=== PATIENT | female | born 1995 | race Two or more races ===

== ENCOUNTER 2025-05-20 17:25 | Observation (INO) | payer MEDICAID, OTHER ==
--- NOTE | 2025-05-20 19:00 | DVH ---
US OB LIMITED CLINICAL HISTORY: Cramping COMPARISON: None TECHNIQUE: Real-time grayscale, color flow and M-mode imaging of the gravid uterus is performed. FINDINGS: Single living intrauterine gestation. Transverse lie, maternal left. heart rate 178 beats per minute. Placenta is posterior. No definite evidence of abruption or previa at this time. The cervix measures approximately 3 cm in length and appears closed. Rounded, heterogeneous and hypoechoic structure seen within the anterior uterine wall. This measures approximately 4.5 cm in diameter and may represent a fibroid. No other prior studies are available f or comparison. Amniotic fluid is visually adequate. MVP 5.3 cm IMPRESSION: Single living intrauterine gestation as above.
--- NOTE | 2025-05-20 20:55 | DVHDS2 ---
Physician Discharge Progress N Final Diagnosis: IUP at 22w5d. Not in labor Operations or Procedures: Operations or Procedures SUBJECTIVE Yeni Oliveros is a 29 yo with IUP at 22w5d presenting for cramping x 3 days Patient states that she had a subchorionic hematoma at the beginning of her which resolved and then came back. She was placed on pelvic rest and has monthly follow-ups with high wire artist (Dr Vasquez). She was also under the impression she has a low lying placenta. Denies any leaking fluid or vaginal bleeding. States she is feeling baby moving like normal. Denies constipation, changes in vaginal discharge, or dysuria. She feels like she has had constant cramping since 3 days ago. It is mild, but always there. Patient states there is no pattern to it and everything "just feels sore" PNC: with Dr Field and Dr Vasquez Review of Systems: Neuro: No complaints Heart: No complaints Lungs: No complaints GI: Lower abdominal cramping as described above : No complaints Skin: No complaints Extremities: No complaints OBJECTIVE VSS FHR: Doppler: 150s UCs: 3x noted on tracing, 40 seconds in length. Patient did not feel when they occurred. Neuro: A&O x4. No apparent distress. Affect appropriate Heart: Regular rate and rhythm Lungs: Clear bilaterally GI: Gravid. No tenderness Skin: Dry and intact. No rashes or lesions Extremities: Cap refill WNL. ASSESSMENT 29 yo with IUP at 22w5d Not in labor PLAN -PO hydrated patient to space out uterine contractions -Discussed common discomforts of and pharmacologic and nonpharmacologi c ways to alleviate. Recommended patient get maternity band for more abdominal support -Continue with appointments as scheduled. Emir on 06/04. Patient to call Christina tomorrow 05/21 to clarify pelvic rest continuation, as US did not show low lying placenta -Discussed labor precautions and kick counts for 28 weeks gestation. Answered all patient questions and concerns. Patient verbalizes understanding. Other Interventions Other Interventions ORDERING PHYSICIAN: JOHN FIELD DO PROCEDURE(s): OBLTD - OBSTERICAL LIMITED REASON: Cramping ORDER NUMBER(s): [id number], ACCESSION NUMBER(s): [id number] US OB LIMITED CLINICAL HISTORY: Cramping COMPARISON: None TECHNIQUE: Real-time grayscale, color flow and M-mode imaging of the gravid uterus is performed. FINDINGS: Single living intrauterine gestation. Transverse lie, maternal left. heart rate 178 beats per minute. Placenta is posterior. No definite evidence of abruption or previa at this time. The cervix measures approximately 3 cm in length and appears closed. Rounded, heterogeneous and hypoechoic structure seen within the anterior uterine wall. This measures approximately 4.5 cm in diameter and may represent a fibroid. No other prior studies are available for comparison. Amniotic fluid is visually adequate. MVP 5.3 cm IMPRESSION: Single living intrauterine gestation as above. Condition on Discharge: Good Disposition: Home Discharge Instructions: Diet: Regular Activity: See Comment (pelvic rest) Medications: no change. see med list Follow Up Care: Specialist: f/up with Emir on 06/04 as previously scheduled Discharge Statement: "Patient was advised to return to the ER or call 911 if any headaches, dizziness, shortness of breath, chest pain, abdominal pain, bleeding, fevers, or worsening of medical condition. Patient was counseled about treatment plan, medications, possible side effects, patientverbalized understanding. All questions were answered to the best of my ability. This discharge took greater then 30 minutes in planning, reviewing documentation, counseling the patient, and discussing with other team members." Visit Coding OBGYN Date of Service: May 20, 2025 Billing Provider: RICHARD OLIVERA CNM COAL PICKER Common Visit Codes: 86017-WRS/OBS SAME DATE (HIGH) COAL PICKER Procedure Codes: 36793-24- NON-STRESS TEST RICHARD OLIVERA CNM May 20, 2025 20:55
== END 2025-05-20 19:58 | disposition home or self-care (01) ==
LOC: LDRP 17:25
PROVIDERS: ADMIT Obstetrics & Gynecology; ATTEND Obstetrics & Gynecology
DX: O44.42 Low lying placenta NOS or without hemorrhage, second trimester (principal); Z3A.22 22 weeks gestation of pregnancy; Z98.890 Other specified postprocedural states
CPT/HCPCS: 59025; 76815; 81002; 94760; G0378

== ENCOUNTER 2025-09-15 09:44 | Observation (INO) | payer MEDICAID ==
--- NOTE | 2025-09-15 10:51 | DVH ---
PROCEDURE: US BIOPHYSICAL PROFILE 09/15/2025 09:58 AM INDICATION: Nuchal/Debris in fluid COMPARISON: 05/20/2025 TECHNIQUE: Sonogram of gravid uterus utilizing grayscale and color techniques. FINDINGS: Single living intrauterine gestation. Presentation: Cephalic Placenta: Fundal heart rate: 138 bpm APOORVA: 14.7 cm, DVP: 7 cm Maternal cervix: Not visualized Other: The umbilical cord is draped around the neck. Debris noted in the amniotic fluid. Biophysical Profile: breathing score: 2 movement score: 2 tone: 2 Quantitative APOORVA score: 2 Total score: 8/8 IMPRESSION: 1. Single living as above. 2. Biophysical profile score: 8/8. 3. Nuchal cord. 4. Debris in the amniotic fluid- that is of uncertain etiology and clinical significance.
[2025-09-15] MEDS ORDERED: PREN-96 PO (10:56)
--- NOTE | 2025-09-15 12:05 | DVHDS2 ---
Physician Discharge Progress N Final Diagnosis: rom ruled out 39wks Operations or Procedures: Operations or Procedures nst reactive reviwed,nisao Condition on Discharge: Good Disposition: Home SNF Discharge Will this Physician continue t: No Discharge Instructions: Diet: Regular Activity: No Restrictions, As Tolerated Medications: na Follow Up Care: Specialist: 2d for induction Discharge Statement: "Patient was advised to return to the ER or call 911 if any headaches, dizziness, shortness of breath, chest pain, abdominal pain, bleeding, fevers, or worsening of medical condition. Patient was counseled about treatment plan, medications, possible side effects, patientverbalized understanding. All questions were answered to the best of my ability. This discharge took greater then 30 minutes in planning, reviewing documentation, counseling the patient, and discussing with other team members." Visit Coding OBGYN Date of Service: Sep 15, 2025 Billing Provider: JOHN DAMON DO AUTOMATION CONTROL INTEGRATOR Common Visit Codes: [id number] OBS CARE (HIGH) JOHN DAMON DO Sep 15, 2025 12:05
== END 2025-09-15 11:26 | disposition home or self-care (01) ==
LOC: LDRP 09:44 → UNDOADMOB 09:44 → LDRP 09:54
PROVIDERS: ADMIT Obstetrics & Gynecology; ATTEND Obstetrics & Gynecology
DX: O62.9 Abnormality of forces of labor, unspecified (principal); Z3A.39 39 weeks gestation of pregnancy; Z98.890 Other specified postprocedural states
CPT/HCPCS: 59025; 76819; 81002; 84112; 94760; A4649; G0378

== ENCOUNTER 2025-09-17 19:39 | Inpatient (IN) | payer MEDICAID ==
[~2025-09-17] VITALS: Ht 154.9 cm; Wt 61.7 kg
[~2025-09-17 19:39] MED LIST: PREN-96 PO
[2025-09-17] MEDS ORDERED: LIDOCAINE 2%HCL (LOCAL ANESTH.) INJ 20ML MDV IJ PRN (22:45)
[2025-09-17] MEDS ORDERED: BUTORPHANOL TARTRATE 2 MG/1 ML VIAL IV PRN ×2 (22:45)
[2025-09-17 23:43] LABS: Hematocrit 31.3 % (36.0-46.0); Hemoglobin 10.5 g/dL (12.2-16.2); Nucleated Red Blood Cells % 0.1 %
[2025-09-17 23:45] LABS: Mean Corpuscular Hemoglobin 25.6 pg (28.0-32.0); Mean Corpuscular Volume 76.3 fL (80.0-100.0)
[2025-09-17 23:57] LABS: Albumin 4.2 g/dL (3.2-4.8); Anion Gap 12 (5-15); BUN/Creatinine Ratio 12.2 (10.0-20.0); Calcium 9.3 mg/dL (8.7-10.4); Carbon Dioxide 22 mmol/L (20-31); Chloride 102 mmol/L (98-107); Glucose 101 mg/dL (74-106); Total Protein 7.1 g/dL (5.7-8.2)
[2025-09-17 23:58] LABS: Bilirubin, Total 0.4 mg/dL (0.2-1.0)
[2025-09-18 00:03] LABS: Alanine Aminotransferase 9 U/L (7-40); Alkaline Phosphatase 263 U/L (46-116); Blood Urea Nitrogen 6 mg/dL (9-23); Potassium 3.2 mmol/L (3.5-5.1); Sodium 136 mmol/L (136-145)
[2025-09-18] MEDS: LIDOCAINE 2% (LOCAL ANESTH.) PF 5ml SDV ONE (00:12)
[2025-09-18] MEDS: NALOXONE HCL 0.4 MG/ML VIAL ONE (00:13)
--- NOTE | 2025-09-18 00:20 | DVHHP2 ---
OB CC & HPI Date Date of Admission: Sep 17, 2025 Patient Identification: : 3 Para: 2 EDC: Sep 18, 2025 EGA: 39w 6d Chief Complaints: Admission Nurse Assessment Rev: Yes History of Present Complaints 29yo G3, [address] with h/o contractions that started at 9pm. She reports normal movement, no SROM, no VB, THOMAS, vision changes or epigastric pain. Past Medical History Cardiac: No pertinent Hx Pulmonary: No pertinent Hx Central Nervous System: No pertinent Hx GI: No pertinent Hx Hemotology/Oncology: No pertinent Hx Hepatobiliary: No pertinent Hx Psychiatric: No pertinent Hx Musculoskeletal: No pertinent Hx Rheumotologic: No pertinent Hx Infectious Disease: No peritnent Hx ENT: No pertinent Hx Renal/: No pertinent Hx Endocrine: No pertinent Hx Dermatology: No pertinent Hx Past Surgical History: No pertinent Hx OB History OB History Care: Good Care Ultrasounds: Normal mid trimester US Obstetrical Complications: None Medical Complications: None Allergies: Coded Allergies: NO KNOWN ALLERGIES (Unverified , 09/17/25) Home Meds Reported Medications Vit W/ Ferrous Fumara ( One Daily) Daily Tab, 1 TAB PO DAILY, #90 TAB 3 Refills 09/15/25 Current Medications Current Medications Medications (Trade) Dose Ordered Sig/Shazia Route PRN Reason Start Time Stop Time Status Last Admin Lactated Ringer's 1,000 ml @ 125 mls/hr Q8H IV 09/17/25 22:45 Witch [place]by (Tucks) 1 pad PRN PRN TOP PERINEAL AREA DISCOMFORT 09/17/25 22:45 Sodium Lauryl Sulfate (Phisoderm) 240 ml PRN PRN TOP PERINEAL AREA DISCOMFORT 09/17/25 22:45 Benzocaine (Dermoplast) 1 applic PRN PRN TOP PERINEAL AREA DISCOMFORT 09/17/25 22:45 Butorphanol Tartrate (Stadol Injection) 1 mg Q4HPRN PRN IV MODERATE PAIN (4-6 PAIN SCALE) 09/17/25 22:45 Butorphanol Tartrate (Stadol Injection) 2 mg Q4HPRN PRN IV SEVERE PAIN (7-10 PAIN SCALE) 09/17/25 22:45 Misoprostol (Cytotec) 50 mcg Q4HPRN PRN PO CERVICAL RIPENING 09/17/25 22:45 Lidocaine HCl (Xylocaine) 20 ml ONCE PRN IJ PERINEAL AREA DISCOMFORT 09/17/25 22:45 Family & Social History Family/Social History Past Family/Social History: Non- contributory Blood Type: A+ Rubella: not immune RPR/VDRL: Negative GBS Status: Negative HBsAG: Negative Review of Systems Constitutional: No symptom reported Ears, Nose, & Throat: No symptom reported Eyes: No symptom reported Pulmonary/Respiratory: No symptom reported Cardiovascular: No symptom reported Gastrointestinal: No symptom reported Genitourinary: No symptom reported Musculoskeletal: No symptom reported Skin: No symptom reported Psychiatric: No symptom reported Endocrine: No symptom reported Hemotologic/Lymphatic: No symptom reported OB Admission Exam Physical Exam HEENT: TMs Normal, Fontanelles Normal, Nasal Mucosa Normal, Eyes non-injected, Oropharynx Normal, PERRLA, Moist Membranes, EOMI Heart: Rhythm Normal Lungs: Clear Abdomen: Gravid (non-tender) Extremities: Normal Reflexes: Normal Cervical Dilatation: 2cm Effacement: 50% Station: -2 Membranes: Intact Accelerations: Accelerations Present Decelerations: No Decelerations Usp Variability: Average (6-25) Contractions on Admission: < 5 Minutes Apart Frequency of Contractions: 2-3minnutes Duration: 80 Intensity: Moderate OB Plan Plan Admitting Diagnosis: IUP at 36w 6d Early Lbor Previously scheduled for IOL but came in spontaneous contraction Plan: Expectant Management Other Plan: Will Augment if indicated. Informed consent obtained. Risk of pain, bleeding, infection, discussed with the patient and partner Consent for possible blood transfusion obtained. All questions answered. Admit to Place for scheduled IOL Routine L&D admission orders EFM per policy & protocol Misoprostol / Cervidil / Pitocin per protocol if indicated Intrauterine resuscitation PRN Labor analgesia PRN Encourage frequent position change and ambulation to facilitate labor & descent Supportive Care Anticipate Visit Coding OBGYN Date of Service: Sep 17, 2025 Billing Provider: ANGELA GAO CNM COOLER TENDER Common Visit Codes: [id number] INP/OBS CARE (HIGH) COOLER TENDER Procedure Codes: 46279-33- NON-STRESS TEST ANGELA GAO CNM Sep 18, 2025 00:20
[2025-09-18] MEDS: LACTATED RINGER'S 1,000 ML IV ONE (00:42)
[2025-09-18 00:44] LABS: INR 0.91 (0.9-1.15); Partial Thromboplastin Time 25.1 SEC (24.5-34.5); Prothrombin Time 9.7 sec (9.3-11.8)
[2025-09-18 01:04] LABS: Urine Protein, UAD Negative (Negative)
[2025-09-18] MEDS: LACTATED RINGER'S 500 ML IV ONE (01:15)
[2025-09-18] MEDS: fentaNYL CITRATE 100 MCG/2 ML VL IV ONE ×2 (01:21→01:45)
--- NOTE | 2025-09-18 01:32 | EPIDURAL ---
Anesthesia Procedural Note - Epidural Date: Sep 18, 2025 Informed consent obtained?: Yes Medication Administered: Fentanyl 100 mcg 2% Lidocaine Administered: 5 Medication Administered: ePHEDrine 5 mg IV Sterile prept drape: Yes Spinal level of insertion: L2-L3 Test dose of lidocaine & Epine: Negative Infusion started: Yes Start time: 00:52 End time: 01:35 PK PULIDO MD Sep 18, 2025 01:32
[2025-09-18] MEDS ORDERED: SODIUM CHLORIDE 0.9% 500 ML IV PRN (01:45)
[2025-09-18] MEDS: NALOXONE HCL 0.4 MG/ML VIAL IV ONE ×2 (01:45)
[2025-09-18 01:56] LABS: Amphetamine Screen, Urine Neg (NEGATIVE); Barbiturate Scree,Urine Neg (NEGATIVE); Benzodiazephine Screen, Urine Neg (NEGATIVE); Cannabinoid Screen, Urine Neg (NEGATIVE); Cocaine Screen, Urine Neg (NEGATIVE); Opiate Scree,Urine Neg (NEGATIVE); Phencyclidine Screen, Urine Neg (NEGATIVE)
[2025-09-18] MEDS: ROPIVACAINE HCL 100 ML ONE ×2 (02:03→10:18)
[2025-09-18] MEDS: LACTATED RINGER'S 1,000 ML IV SCH (02:06)
[2025-09-18] MEDS: PHISODERM TOP SOLN 240ML BTL TOP PRN (02:22)
[2025-09-18] MEDS: DERMOPLAST 60ML BOTTLE TOP PRN (02:22)
[2025-09-18] MEDS: WITCH HAZEL-GLYCERIN PAD TOP PRN (02:22)
--- NOTE | 2025-09-18 06:41 | DVHPN2 ---
Chief Complaints Patient reports: No new complaints Nursing reports: No new complaints Objective Vitals Vital Signs Date Time Temp Pulse Resp B/P (MAP) Pulse Ox O2 Delivery O2 Flow Rate FiO2 09/18/25 01:21 120/74 Medications Current Medications Medications (Trade) Dose Ordered Sig/Shazia Route PRN Reason Start Time Stop Time Status Last Admin Benzocaine (Dermoplast) 1 applic PRN PRN TOP PERINEAL AREA DISCOMFORT 09/17/25 22:45 09/18/25 02:22 Butorphanol Tartrate (Stadol Injection) 1 mg Q4HPRN PRN IV MODERATE PAIN (4-6 PAIN SCALE) 09/17/25 22:45 Butorphanol Tartrate (Stadol Injection) 2 mg Q4HPRN PRN IV SEVERE PAIN (7-10 PAIN SCALE) 09/17/25 22:45 Fentanyl/ Ropivacaine 200 ml @ 10 mls/hr UD EPI 09/18/25 01:45 09/20/25 01:44 Lactated Ringer's 1,000 ml @ 125 mls/hr Q8H IV 09/17/25 22:45 09/18/25 02:06 Lidocaine HCl (Xylocaine) 20 ml ONCE PRN IJ PERINEAL AREA DISCOMFORT 09/17/25 22:45 Misoprostol (Cytotec) 50 mcg Q4HPRN PRN PO CERVICAL RIPENING 09/17/25 22:45 Sodium Chloride 500 ml @ 500 mls/hr Q1H PRN IV FOR BP LESS THAN 90 09/18/25 01:45 Sodium Lauryl Sulfate (Phisoderm) 240 ml PRN PRN TOP PERINEAL AREA DISCOMFORT 09/17/25 22:45 09/18/25 02:22 Witch Barby (Tucks) 1 pad PRN PRN TOP PERINEAL AREA DISCOMFORT 09/17/25 22:45 09/18/25 02:22 Others VE-2CM/50/-2 Studies Laboratory Tests 09/17/25 23:09 Test 09/17/25 23:09 Range/Units Serum Glucose 101 74-106 mg/dL Ass/Plan Assessment TERM PREG IN LABOR Plan SUPPORTIVE CARE Visit Coding OBGYN Date of Service: Sep 18, 2025 Billing Provider: JOHN DAMON DO REBRANDER Common Visit Codes: [id number] OBS CARE (HIGH) REBRANDER Procedure Codes: 52643-27- NON-STRESS TEST JOHN DAMON DO Sep 18, 2025 06:40
--- NOTE | 2025-09-18 08:10 | DVHPN2 ---
CNM Labor Progress Note Date and Time Seen Date Seen: Sep 18, 2025 Time Seen: 03:00 Subjective Patient reports: No new complaints Subjective Comment Comfortable with epidural in place Objective Vital Signs VSS Monitoring Method Monitoring Method: External Heart Rate Heart Rate Baseline: 135 Heart Rate Variability: Moderate Presence of FHR Accelerations: Yes Presence of FHR Decelerations: No Changes in Trends of Patterns: No Are all 5 Components of the FH: Yes Contractions Contractions Frequency: Other (2-4) Duration of Contraction: 60 Contractions Intensity: Moderate Contractions Resting Tone: Relaxed Membranes Membranes: Intact Vaginal Exam Vag Exam Deferred: No Vaginal Exam Dilation: 2 (2.5cm) Vaginal Exam Effacement: 50 Vaginal Exam Station: -2 Vaginal Exam Presentation: VTX Vaginal Exam Show: Moderate Medications Medications - Pitocin: No Medication - Epidural: Yes Lab Results Lab Results Vital Signs Date Time Temp Pulse Resp B/P (MAP) Pulse Ox O2 Delivery O2 Flow Rate FiO2 09/18/25 01:21 120/74 Current Medications Medications (Trade) Dose Ordered Sig/Shazia Start Time Stop Time Status Last Admin Dose Admin Lactated Ringer's 1,000 ml @ 125 mls/hr Q8H 09/17/25 22:45 09/18/25 02:06 125 MLS/HR Witch Barby (Tucks) 1 pad PRN PRN 09/17/25 22:45 09/18/25 02:22 1 PAD Sodium Lauryl Sulfate (Phisoderm) 240 ml PRN PRN 09/17/25 22:45 09/18/25 02:22 240 ML Benzocaine (Dermoplast) 1 applic PRN PRN 09/17/25 22:45 09/18/25 02:22 1 APPLIC Butorphanol Tartrate (Stadol Injection) 1 mg Q4HPRN PRN 09/17/25 22:45 Butorphanol Tartrate (Stadol Injection) 2 mg Q4HPRN PRN 09/17/25 22:45 Misoprostol (Cytotec) 50 mcg Q4HPRN PRN 09/17/25 22:45 Lidocaine HCl (Xylocaine) 20 ml ONCE PRN 09/17/25 22:45 Naloxone HCl (Narcan) 0.2 mg PRN ONCE 09/18/25 00:00 09/18/25 00:04 DC Ephedrine Sulfate (ePHEDrine SULFATE) 10 mg PRN ONCE 09/18/25 00:00 09/18/25 00:04 DC Fentanyl Citrate 100 mcg ONCE ONCE 09/18/25 00:00 09/18/25 00:04 DC 09/18/25 01:21 100 MCG Lactated Ringer's 500 ml @ 500 mls/hr Q1H ONCE 09/18/25 00:00 09/18/25 00:59 DC 09/18/25 01:15 500 MLS/HR Lactated Ringer's 1,000 ml @ 1,000 mls/hr Q1H ONCE 09/18/25 00:00 09/18/25 00:59 DC 09/18/25 00:42 1,000 MLS/HR Sodium Chloride 500 ml @ 500 mls/hr Q1H PRN 09/18/25 01:45 Naloxone HCl (Narcan) 0.2 mg PRN ONCE 09/18/25 01:45 09/18/25 01:46 DC Ephedrine Sulfate (ePHEDrine SULFATE) 10 mg PRN ONCE 09/18/25 01:45 09/18/25 01:46 DC Fentanyl Citrate 100 mcg ONCE ONCE 09/18/25 01:45 09/18/25 01:46 DC Fentanyl/ Ropivacaine 200 ml @ 10 mls/hr UD 09/18/25 01:45 09/20/25 01:44 Laboratory Tests Test 09/18/25 00:23 09/17/25 23:09 Range/Units Urine Color Colorless Yellow Urine Clarity Clear Clear Urine pH 6.0 5.0-9.0 Urine Specific [place] 1.003 1.001-1.035 Urine Protein Negative Negative Urine Ketones 2+ H Negative Urine Blood Negative Negative /uL Urine Nitrite Negative Negative Urine Bilirubin Negative Negative Urine Urobilinogen Normal Negative mg/dL Urine Leukocyte Esterase 2+ Negative /uL Urine RBC None seen 0 - 4 /hpf Urine Microscopic WBC 6 H 0-5 /HPF Urine Squamous Epithelial Cells Few <5 /hpf Urine Bacteria None seen None Seen /hpf Urine Glucose Normal Normal mg/dL Urine Opiates Screen Neg NEGATIVE Urine Fentanyl Screen Neg NEGATIVE Urine Barbiturates Screen Neg NEGATIVE Urine Phencyclidine Screen Neg NEGATIVE Urine Amphetamines Screen Neg NEGATIVE Urine Benzodiazepines Screen Neg NEGATIVE Urine Cocaine Screen Neg NEGATIVE Urine Cannabinoids Screen Neg NEGATIVE White Blood Count 9.3 4.4-10.8 10^3/uL Red Blood Count 4.11 4.0-5.20 10^6/uL Hemoglobin 10.5 L 12.2-16.2 g/dL Hematocrit 31.3 L 36.0-46.0 % Mean Corpuscular Volume 76.3 L 80.0-100.0 fL Mean Corpuscular Hemoglobin 25.6 L 28.0-32.0 pg Mean Corpuscular Hemoglobin Concent 33.5 32.0-36.0 g/dL Red Cell Distribution Width 13.7 11.8-14.3 % Platelet Count 176 140-450 10^3/uL Mean Platelet Volume 10.8 6.9-10.8 fL Neutrophils (%) (Auto) 71.2 37.0-80.0 % Lymphocytes (%) (Auto) 23.5 10.0-50.0 % Monocytes (%) (Auto) 4.0 0.0-12.0 % Eosinophils (%) (Auto) 0.3 0.0-7.0 % Basophils (%) (Auto) 1.0 0.0-2.0 % Neutrophils # (Auto) 6.6 1.6-8.6 10 ^3/uL Lymphocytes # (Auto) 2.2 0.4-5.4 10 ^3/uL Monocytes # (Auto) 0.4 0-1.3 10 ^3/uL Eosinophils # (Auto) 0 0-0.8 10 ^3/uL Basophils # (Auto) 0.1 0-0.2 10 ^3/uL Nucleated Red Blood Cells 0.1 % Prothrombin Time 9.7 9.3-11.8 sec Prothrombin Time INR 0.91 0.9-1.15 Activated Partial Thromboplast Time 25.1 24.5-34.5 SEC Sodium Level 136 136-145 mmol/L Potassium Level 3.2 L 3.5-5.1 mmol/L Chloride Level 102 98-107 mmol/L Carbon Dioxide Level 22 20-31 mmol/L Anion Gap 12 5-15 Blood Urea Nitrogen 6 L 9-23 mg/dL Creatinine 0.49 L 0.550-1.02 mg/dL Glomerular Filtration Rate Calc 130 >90 mL/min BUN/Creatinine Ratio 12.2 10.0-20.0 Serum Glucose 101 74-106 mg/dL Calcium Level 9.3 8.7-10.4 mg/dL Total Bilirubin 0.4 0.2-1.0 mg/dL Aspartate Amino Transferase (AST) 21 13-40 U/L Alanine Aminotransferase (ALT) 9 7-40 U/L Alkaline Phosphatase 263 H 46-116 U/L Total Protein 7.1 5.7-8.2 g/dL Albumin 4.2 3.2-4.8 g/dL Treponema pallidum Antibody Non-reactive Negative Hepatitis C Antibody Negative Negative Assessment Assessment > IUP at 40weeks > Labor > Category I FHR Tracing > Anemia in Plan Plan > Attempt to insert Cervical Ripening balloon not successful > Continue expectant management - natural labor > Continue EFM > Intrauterine Resuscitation PRN > Supportive Care > Anticipate Plan discussed with: Patient, Spouse, Other (Patient's Aunt and Sister) Visit Coding OBGYN Date of Service: Sep 18, 2025 Billing Provider: ANGELA GAO CNM WOOD HEEL BACK LINER Common Visit Codes: [id number] INP/OBS CARE(HIGH) WOOD HEEL BACK LINER Procedure Codes: 72544-55- NON-STRESS TEST ANGELA GAO CNM Sep 18, 2025 08:10
[2025-09-18] MEDS: fentaNYL 400mCg/200ml W ROPIVA 200 ML EPI SCH (10:37)
[2025-09-18] MEDS ORDERED: TERBUTALINE SULFATE 1 MG/ML 1ML VIAL SC PRN (10:45)
[2025-09-18] MEDS: LACT. RINGERS/OXYTOCIN 20UNITS 1,000 ML IV SCH (11:33)
--- NOTE | 2025-09-18 16:54 | LDN2 ---
Labor and Delivery Note Date 09/18/25 Age 29 3 Para 3 EDC 09-18 EGA 39wks Diagnosis labor Vaginal Delivery: VTX Vacuum Assisted: No Placenta: Spontaneous Sex: Female Apgars 8-8 Nuchal Cord Transected: Yes Amniotic Fluid: Clear Anesthesia epidural Episiotomy: No Extension: No EBL 300ml Labs Blood Bank 09/17/25 23:09: Blood Type A POSITIVE Complications none Conditions stable Comments/Significant Med Dasia spec exam no cxal lac Visit Coding OBGYN Date of Service: Sep 18, 2025 Billing Provider: JOHN DAMON DO DATA GOVERNANCE CONSULTANT Common Visit Codes: [id number] OBS CARE (HIGH) DATA GOVERNANCE CONSULTANT Procedure Codes: [id number]-[id number] DELIVERY ONLY JOHN DAMON DO Sep 18, 2025 16:54
[2025-09-18] MEDS: LACT. RINGERS/OXYTOCIN 20UNITS 500 ML IV ONE ×2 (17:04)
[2025-09-18 18:57] VITALS: BP 132/75; PULSE 93; TEMP 99.6; O2SAT 99
[2025-09-18] MEDS: IBUPROFEN 600 MG TAB PO PRN (19:39)
[2025-09-18] MEDS: ACETAMINOPHEN 325 MG TAB PO PRN (21:32)
[2025-09-18 23:00] VITALS: BP 97/57; PULSE 88; RESP 17; TEMP 99.2; O2SAT 97
[2025-09-19 03:02] VITALS: BP 108/72; PULSE 74; RESP 16; TEMP 97.9; O2SAT 98
--- NOTE | 2025-09-19 06:11 | DVHPN2 ---
Progress Note Date Seen: Sep 19, 2025 Subjective S: > Lochia minimal > Tolerating regular diet well. > Ambulating and voiding well w/o feeling lightheaded or dizzy. > Passing flatus but no BM yet. Breast feeding. > Contraceptive plan: > Desires and requests to be discharged home today / tomorrow vital signs Vital Sign Date Time Temp Pulse Resp B/P (MAP) Pulse Ox O2 Delivery O2 Flow Rate FiO2 09/19/25 03:02 97.9 74 16 108/72 (84) 98 97.9 09/18/25 19:02 Room Air Total Intake and Output 09/18/25 09/18/25 09/19/25 15:00 23:00 07:00 Intake Total 800 ml 800 ml Output Total 690 ml 750 ml Balance 110 ml 50 ml medications Current Medications Medications Dose Ordered Sig/Shazia Route Start Time Stop Time Status Last Admin Dose Admin Jovany Dior 1 pad PRN PRN TOP 09/17/25 22:45 09/18/25 02:22 1 PAD Sodium Lauryl Sulfate 240 ml PRN PRN TOP 09/17/25 22:45 09/18/25 02:22 240 ML Benzocaine 1 applic PRN PRN TOP 09/17/25 22:45 09/18/25 02:22 1 APPLIC Butorphanol Tartrate 1 mg Q4HPRN PRN IV 09/17/25 22:45 Cancel Butorphanol Tartrate 2 mg Q4HPRN PRN IV 09/17/25 22:45 Cancel Misoprostol 50 mcg Q4HPRN PRN PO 09/17/25 22:45 Cancel Lidocaine HCl 20 ml ONCE PRN IJ 09/17/25 22:45 Cancel Sodium Chloride 500 ml @ 500 mls/hr Q1H PRN IV 09/18/25 01:45 Cancel Terbutaline Sulfate 0.25 mg ONCE PRN SC 09/18/25 10:45 Cancel Ibuprofen 600 mg Q6HP PRN PO 09/18/25 17:30 09/19/25 02:46 600 MG Acetaminophen 650 mg Q4HP PRN PO 09/18/25 17:30 09/18/25 21:32 650 MG laboratory and microbiology Laboratory Tests 09/17/25 23:09 Test 09/17/25 23:09 Range/Units Serum Glucose 101 74-106 mg/dL Objective O: > A&O x3 NAD. > Afebrile, VSS > Chest: heart and lung sounds normal. > Breasts: Nipples intact w/o cracks or soreness > Abdomen: normal BS, soft, non-tender, no rebound or guarding, fundus firm @ U-1, lochia minimal > Perineum:- no edema, or erythema > Extremities: no edema or tenderness Assessment/Plan > 29 yo now ppd#1 s/p doing well. > Anemia > Blood Type:A Rh: Positive > Breast feeding > Rubella Non Immune; Offer vaccine prior to discharge > Pain control with oral medications > Bowel regimen: Increase fluid intake and fiber in diet, Laxative PRN > PP BCM Plan: Male Condom > Discharge plan: May discharge home later today if condition remains stable Plan discussed with: Patient, Spouse, Other (Patient's Aunt and Sister) Visit Coding OBGYN Date of Service: Sep 19, 2025 Billing Provider: ANGELA GAO CNM VALET CASHIER Common Visit Codes: [id number] INP/OBS CARE(HIGH) ANGELA GAO CNM Sep 19, 2025 06:11
--- NOTE | 2025-09-19 06:41 | DVHDS2 ---
Discharge Summary Date of Admission Sep 17, 2025 at 22:23 Date of Discharge: Sep 19, 2025 Admitting Diagnosis > IUP at 39w 6d > Early Spontaneous Labor > Rubella Not Immune > Anemia Wounds: None Labs/Diagnostic Data: Laboratory Results Test 09/18/25 00:23 09/17/25 23:09 Urine Color Colorless (Yellow) Urine Clarity Clear (Clear) Urine pH 6.0 (5.0-9.0) Urine Specific Michael 1.003 (1.001-1.035) Urine Protein Negative (Negative) Urine Ketones 2+ (Negative) Urine Blood Negative /uL (Negative) Urine Nitrite Negative (Negative) Urine Bilirubin Negative (Negative) Urine Urobilinogen Normal mg/dL (Negative) Urine Leukocyte Esterase 2+ /uL (Negative) Urine RBC None seen /hpf (0 - 4) Urine Microscopic WBC 6 /HPF (0-5) Urine Squamous Epithelial Cells Few /hpf (<5) Urine Bacteria None seen /hpf (None Seen) Urine Glucose Normal mg/dL (Normal) Urine Opiates Screen Neg (NEGATIVE) Urine Fentanyl Screen Neg (NEGATIVE) Urine Barbiturates Screen Neg (NEGATIVE) Urine Phencyclidine Screen Neg (NEGATIVE) Urine Amphetamines Screen Neg (NEGATIVE) Urine Benzodiazepines Screen Neg (NEGATIVE) Urine Cocaine Screen Neg (NEGATIVE) Urine Cannabinoids Screen Neg (NEGATIVE) White Blood Count 9.3 10^3/uL (4.4-10.8) Red Blood Count 4.11 10^6/uL (4.0-5.20) Hemoglobin 10.5 g/dL (12.2-16.2) Hematocrit 31.3 % (36.0-46.0) Mean Corpuscular Volume 76.3 fL (80.0-100.0) Mean Corpuscular Hemoglobin 25.6 pg (28.0-32.0) Mean Corpuscular Hemoglobin Concent 33.5 g/dL (32.0-36.0) Red Cell Distribution Width 13.7 % (11.8-14.3) Platelet Count 176 10^3/uL (140-450) Mean Platelet Volume 10.8 fL (6.9-10.8) Neutrophils (%) (Auto) 71.2 % (37.0-80.0) Lymphocytes (%) (Auto) 23.5 % (10.0-50.0) Monocytes (%) (Auto) 4.0 % (0.0-12.0) Eosinophils (%) (Auto) 0.3 % (0.0-7.0) Basophils (%) (Auto) 1.0 % (0.0-2.0) Neutrophils # (Auto) 6.6 10 ^3/uL (1.6-8.6) Lymphocytes # (Auto) 2.2 10 ^3/uL (0.4-5.4) Monocytes # (Auto) 0.4 10 ^3/uL (0-1.3) Eosinophils # (Auto) 0 10 ^3/uL (0-0.8) Basophils # (Auto) 0.1 10 ^3/uL (0-0.2) Nucleated Red Blood Cells 0.1 % Prothrombin Time 9.7 sec (9.3-11.8) Prothrombin Time INR 0.91 (0.9-1.15) Activated Partial Thromboplast Time 25.1 SEC (24.5-34.5) Sodium Level 136 mmol/L (136-145) Potassium Level 3.2 mmol/L (3.5-5.1) Chloride Level 102 mmol/L (98-107) Carbon Dioxide Level 22 mmol/L (20-31) Anion Gap 12 (5-15) Blood Urea Nitrogen 6 mg/dL (9-23) Creatinine 0.49 mg/dL (0.550-1.02) Glomerular Filtration Rate Calc 130 mL/min (>90) BUN/Creatinine Ratio 12.2 (10.0-20.0) Serum Glucose 101 mg/dL (74-106) Calcium Level 9.3 mg/dL (8.7-10.4) Total Bilirubin 0.4 mg/dL (0.2-1.0) Aspartate Amino Transferase (AST) 21 U/L (13-40) Alanine Aminotransferase (ALT) 9 U/L (7-40) Alkaline Phosphatase 263 U/L (46-116) Total Protein 7.1 g/dL (5.7-8.2) Albumin 4.2 g/dL (3.2-4.8) Treponema pallidum Antibody Non-reactive (Negative) Hepatitis C Antibody Negative (Negative) Other Laboratory Tests 09/17/25 23:09 Brief Hx & Hospital Course: Admitted on 09/17/25 at 39w 6d EGA for labor. Was scheduled for elective IOL but came in spontaneous labor. She got labor epidural for pain relief. She progressed to 2nd stage of labor and had a over an intact perineum. (See Delivery Note for details) Normal course; meeting milestones w/o any problem or complications. Consults/Reason for consult Not Applicable Operations or Procedures Condition at Discharge: Good Final Diagnosis/Problems List Same Term - Delivered Anemia Discharge Disposition: Home Discharge Instruct/Medications Diet: Regular Diet comment: Routine regular diet rich in fiber, protein, iron and vitamin C with adequate fluid intake Activity: Activity comment: Advance as tolerated. Balance activities with rest periods No heavy lifting, pushing or straining. Pelvic rest x 6weeks Follow Up/Referral: Follow up with OB Provider in 1 - 2 weeks Medications: Ibuprofen 600mg every 6 hours as needed for pain. Continue Vitamin and iron Scheduled Ferrous Sulfate (Ferrous Sulfate), 1 TAB PO DAILY Vit W/ Ferrous Fumara ( One Daily), 1 TAB PO DAILY, (Reported) Scheduled PRN Acetaminophen (Apap), 2 TAB PO Q8HPRN PRN Ibuprofen Micronized (Ibuprofen), 600 MG PO Q6HPRN PRN Discharge Statement: self care instructions given. emergency signs and symptoms including but not limited to pre-eclampsia precautions and signs of infection, PPH & of PPD reviewed with patient "Patient was advised to return to the ER or call 911 if any headaches, dizziness, shortness of breath, chest pain, abdominal pain, bleeding, fevers, or worsening of medical condition. Patient was counseled about treatment plan, medications, possible side effects, patientverbalized understanding. All questions were answered to the best of my ability. This discharge took greater then 30 minutes in planning, reviewing documentation, counseling the patient, and discussing with other team members." ASSESSMENT ASSESSMENT Hospital Course Admitted on 09/17/25 at 39w 6d EGA for labor. Was scheduled for elective IOL but came in spontaneous labor. She got labor epidural for pain relief. She progressed to 2nd stage of labor and had a over an intact perineum. (See Delivery Note for details) Normal course; meeting milestones w/o any problem or complications. Assessment Term - Delivered Anemia Visit Coding OBGYN Date of Service: Sep 19, 2025 Billing Provider: ANGELA GAO CNM [employer] Common Visit Codes: 81402-DMO/OBS DISCH DAY <30MIN ANGELA GAO CNM Sep 19, 2025 06:41
[2025-09-19 07:00] VITALS: BP 116/66; PULSE 89; RESP 16; TEMP 97.8; O2SAT 99
[2025-09-19] MEDS ORDERED: FER325T PO (07:04)
[2025-09-19] MEDS ORDERED: IBUP1TAB5 PO (08:17)
[2025-09-19] MEDS ORDERED: ACET325T82 PO (08:23)
[2025-09-19 11:09] VITALS: BP 131/83; PULSE 80; RESP 17; TEMP 97.8; O2SAT 97
[2025-09-19 15:00] VITALS: BP 121/83; PULSE 91; RESP 16; TEMP 98; O2SAT 97
[2025-09-19] MEDS: MEASLES, MUMPS & RUBELLA VAC(MMRII) 0.5ML SC ONE (17:30)
== END 2025-09-19 18:15 | disposition home or self-care (01) | DRG 560 ==
LOC: LDRP 22:23
PROVIDERS: ADMIT Obstetrics & Gynecology; ATTEND Obstetrics & Gynecology
PROC: 10E0XZZ Delivery of Products of Conception, External Approach (ICD-10-PCS; principal; 2025-09-18)
PROC: 3E0R3BZ Introduction of Anesthetic Agent into Spinal Canal, Percutaneous Approach (ICD-10-PCS; 2025-09-18)
PROC: 00HU33Z Insertion of Infusion Device into Spinal Canal, Percutaneous Approach (ICD-10-PCS; 2025-09-18)
DX: O69.81X0 Labor and delivery complicated by cord around neck, without compression, not applicable or unspecified (principal); Z37.0 Single live birth; O99.02 Anemia complicating childbirth; Z3A.39 39 weeks gestation of pregnancy
CPT/HCPCS: 36415; 59025; 59200; 59409; 62282; 80053; 80307; 81001; 81002; 85025; 85610; 85730; 86780; 86803; 86850; 86900; 86901; 94760; 96360; 96361; 96365; 96366; G0378; J2003; J2590